=== PATIENT | female | born 1995 | race Two or more races ===

== ENCOUNTER 2018-09-13 14:38 | Outpatient (CLI) | payer SELFPAY ==
[2018-09-13] MEDS ORDERED: CEFTRIAXONE INJ 500 MG VIAL IM ONE (16:04)
[2018-09-13] MEDS ORDERED: AZITHROMYCIN 250 MG TABLET PO ONE (16:05)
[2018-09-13 16:41] LABS: APPEARANCE,URINE CLOUDY; BILIRUBIN,URINE NEGATIVE (NEGATIVE); COLOR,URINE AMBER; GLUCOSE, URINE NEGATIVE (NEGATIVE); KETONES,URINE 80 mg/dL (NEGATIVE); LEUKOCYTE ESTERASE,URINE SMALL (NEGATIVE); NITRITE,URINE NEGATIVE (NEGATIVE); PROTEIN,URINE 30 mg/dL (NEGATIVE); URINE SPECIFIC GRAVITY 1.025
[2018-09-13] MEDS ORDERED: AZITHROMYCIN 250 MG TABLET ONE (16:45)
[2018-09-13] MEDS ORDERED: LIDOCAINE 1% INJ-PF (10 MG/ML) 30 ML SDV ONE (16:45)
[2018-09-13] MEDS ORDERED: CEFTRIAXONE INJ 1000 MG VIAL ONE (16:45)
[2018-09-13 16:53] LABS: URINE AMPHETAMINES SCREEN NEGATIVE; URINE BARBITURATES SCREEN NEGATIVE; URINE BENZODIAZEPINES SCREEN NEGATIVE; URINE COCAINE SCREEN NEGATIVE; URINE MARIJUANA (THC) SCREEN NEGATIVE; URINE METHADONE SCREEN NEGATIVE; URINE PHENCYCLIDINE SCREEN NEGATIVE
--- NOTE | 2018-09-13 16:55 | RADIOLOGY REPORT (SQ) ---
EXAM DESCRIPTION: U/S OB LIMITED COMPLETED DATE/TIME: 09/13/2018 4:39 pm REASON FOR STUDY: cervical length, vaginal spotting COMPARISON: None. TECHNIQUE: Limited transabdominal grayscale ultrasound for evaluation of specific requested obstetri parmjit parameters. LIMITATIONS: None. FINDINGS: CERVICAL LENGTH: 3.4 cm Closed. BEBE: 12.2 cm cm. FHR: 163 beats per minute. PRESENTATION: Breech. PLACENTA: Anterior fundal. ANATOMY: Not assessed OTHER: DAVION: 11/23/2018. EGA: 29 weeks 6 days. IMPRESSION: LIMITED OBSTETRICAL ULTRASOUND WITH MEASURED PARAMETERS DELINEATED ABOVE. Trimester of : Third trimester - 28 weeks to delivery. TECHNICAL DOCUMENTATION: JOB ID: [id number] [employer]- All Rights Reserved Reading location - IP/workstation name: [email or web address]
[2018-09-13 17:01] LABS: BACTERIA (WET MOUNT) 4+ BACTERIA SEEN; EPITHELIALS (WET MOUNT) 3+ EPITHELIALS SEEN; T.VAGINALIS (WET MOUNT) NO TRICHOMONAS SEEN; WBCS (WET MOUNT) 1+ WBCS SEEN; YEAST (WET MOUNT) NO YEAST SEEN
[2018-09-13] MEDS ORDERED: LIDOCAINE 1% INJ-PF (10 MG/ML) 30 ML SDV INJ ONE (17:07)
[2018-09-13] MEDS ORDERED: CEFTRIAXONE INJ 1000 MG VIAL IM ONE (17:07)
[2018-09-13 19:52] LABS: CHLAM PCR NOT DETECTED (NOT DETECT)
[2018-09-15 08:37] LABS: HEPATITIS C VIRUS AB <0.1 s/co ratio (0.0-0.9)
[2018-09-15 10:55] LABS: HEPATITS B SURFACE ANTIGEN Negative (Negative)
== END 2018-09-13 17:27 | disposition home or self-care (01) ==
LOC: LC 14:38 → EEVIPCON 14:38 → LC 17:27
PROVIDERS: ATTEND Student in an Organized Health Care Education/Training Program
PROC: 4A1HXCZ Monitoring of Products of Conception, Cardiac Rate, External Approach (ICD-10-PCS; principal; 2018-09-13)
DX: O26.853 Spotting complicating pregnancy, third trimester (principal); Z3A.29 29 weeks gestation of pregnancy
CPT/HCPCS: 59899; 36415; 87210; 86592; 81001; 87340; 86701; 80307; 87491; 87591; 86803; 86804; 76815; J3490; J0696